=== PATIENT | female | born 1985 | race African-American/Black ===

== ENCOUNTER 2017-08-27 05:09 | Emergency (ER) | payer OTHER ==
[~2017-08-27] VITALS: Ht 152.4 cm; Wt 46.0 kg
[2017-08-27 06:35] LABS: BASOPHILS % 0.6 % (0.0-2.0); EOSINOPHILS % 2.6 % (0.0-5.0); HEMATOCRIT. 32.5 % (36.0-48.0); HEMOGLOBIN. 10.8 g/dL (12.0-16.0); LYMPHOCYTES % 27.2 % (20.0-50.0); MEAN CORPUSCULAR HEMOGLOBIN 26.1 pg (28.0-32.0); MEAN CORPUSCULAR VOLUME 78.5 fL (81.0-99.0); MEAN PLATELET VOLUME 8.4 fl (7.4-10.4); MONOCYTES % 7.2 % (2.0-8.0); NEUTROPHILS % 62.4 % (40.0-76.0); PLATELET 231 x1000/uL (130-400); RED BLOOD CELL COUNT 4.14 mill/uL (4.2-5.4); RED CELL DISTRIBUTION WIDTH 14.3 % (11.6-14.6)
[2017-08-27 06:36] LABS: CLARITY URINE CLEAR (CLEAR); COLOR URINE YELLOW (YELLOW); KETONES URINE 1+ (NEGATIVE); LEUKOCYTE ESTERASE URINE NEGATIVE (NEGATIVE); NITRITE URINE NEGATIVE (NEGATIVE); OCCULT BLOOD URINE 2+ (NEGATIVE); PROTEIN URINE NEGATIVE (NEGATIVE); SPECIFIC GRAVITY URINE 1.033 (1.005-1.030); UROBILINOGEN URINE 0.2 E.U./dL (0.2-1.0)
[2017-08-27 06:40] LABS: INR 1.1; PROTHROMBIN TIME 11.7 sec (9.4-11.6)
[2017-08-27 06:45] LABS: HCG SCREEN NEGATIVE
[2017-08-27 06:57] LABS: CARBON DIOXIDE 25 mEq/L (21-32); CHLORIDE 107 mEq/L (98-107); TROPONIN I < 0.02 ng/mL (0.00-0.04)
[2017-08-27] MEDS ORDERED: SODIUM CHLORIDE 0.9% 1,000 ML IV ONE (07:15)
[2017-08-27] MEDS ORDERED: LORAZEPAM 2MG/ML CPJ IV ONE (07:15)
[2017-08-27 08:33] VITALS: BP 124/69
== END 2017-08-27 08:40 | disposition home or self-care (01) ==
LOC: ER 05:58
DX: F41.9 Anxiety disorder, unspecified (principal); N30.00 Acute cystitis without hematuria; E86.0 Dehydration; K59.00 Constipation, unspecified
CPT/HCPCS: 36415; 71045; 80053; 81001; 83690; 84484; 84703; 85025; 85610; 93005; 99285; J7030

== ENCOUNTER 2022-12-20 12:35 | Emergency (ER) | payer SELFPAY ==
[~2022-12-20] VITALS: Ht 152.4 cm; Wt 68.2 kg
[2022-12-20 13:07] VITALS: BP 132/78
== END 2022-12-20 13:23 | disposition home or self-care (01) ==
LOC: ER 12:35
DX: L50.9 Urticaria, unspecified (principal)
CPT/HCPCS: 99281